=== PATIENT | male | born 1990 | race African-American/Black ===

== ENCOUNTER 2016-06-04 07:58 | Emergency (ER) | payer BC, OTHER ==
[2016-06-04 08:07] VITALS: BP 118/60; TEMP 97.6
[2016-06-04] MEDS ORDERED: IPRATROPIUM-ALBUTEROL 3 ML NEB INHALATION STA (08:19)
--- NOTE | 2016-06-04 08:26 | ED ---
General Adult HPI - General Chief complaint: Shortness of Breath Stated complaint: ASTHMA, ANI Time Seen by Provider: 06/04/16 08:10 Source: patient, RN notes reviewed Mode of arrival: ambulatory Limitations: no limitations - History of Present Illness Initial comments: Patient is a 26-year-old male with significant past mental history for asthma, who presents emergency room today with a chief complaint of asthma exacerbation. He does admit that he's had some mild cough last few days waking up this morning with increased shortness of breath. States feels similar to his asthma. Does admit that he used to do. She was at home but no longer has machine. He denies any other complaints or associated symptoms. Patient denies any recent fever, chills, shortness of breath, chest pain, back pain, abdominal pain, nausea or vomiting, numbness or tingling, dysuria or hematuria, constipation or diarrhea, headaches or visual changes, or any other complaints. - Related Data Home Medications Medication Instructions Recorded Confirmed Albuterol Inhaler [Ventolin 2 puff INHALATION RT-Q4H PRN 02/03/14 06/04/16 Inhaler] Previous Rx's Medication Instructions Recorded Albuterol Inhaler [Ventolin Hfa 1 - 2 puff INHALATION Q4-6H PRN #1 06/04/16 Inhaler] inhaler Albuterol Nebulized [Ventolin 2.5 mg INHALATION Q4H PRN 10 Days 06/04/16 Nebulized] methylPREDNISolone Dose Pack 4 mg PO DIRECTED #21 package 06/04/16 [Medrol Dose Pack] Allergies Allergy/AdvReac Type Severity Reaction Status Date / Time shellfish derived Allergy Itching Verified 06/04/16 08:22 Review of Systems ROS Statement: Those systems with pertinent positive or pertinent negative responses have been documented in the HPI. ROS Other: All systems not noted in ROS Statement are negative. Past Medical History Past Medical History: Asthma History of Any Multi-Drug Resistant Organisms: None Reported Past Surgical History: No Surgical Hx Reported Past Psychological History: No Psychological Hx Reported Smoking Status: Never smoker Past Alcohol Use History: None Reported Past Drug Use History: None Reported General Exam - General Exam Comments Initial Comments: General: The patient is awake and alert, in no distress, and does not appear acutely ill. Eye: Pupils are equal, round and reactive to light, extra-ocular movements are intact. No nystagmus. There is normal conjunctiva bilaterally. No signs of icterus. Ears, nose, mouth and throat: There are moist mucous membranes and no oral lesions. Neck: The neck is supple, there is no tenderness or JVD. Cardiovascular: There is a regular rate and rhythm. No murmur, rub or gallop is appreciated. Respiratory: Lungs sounds diminished bilaterally. Mild wheezing on forced expiration. respirations are non-labored, breath sounds are equal. No stridor , rales, or rhonchi. Musculoskeletal: Normal ROM, no tenderness. Strength 5/5. Sensation intact. Pulses equal bilaterally 2+. Neurological: A&O x 3. CN II-XII intact, There are no obvious motor or sensory deficits. Coordination appears grossly intact. Speech is normal. Skin: Skin is warm and dry and no rashes or lesions are noted. Psychiatric: Cooperative, appropriate mood & affect, normal judgment. Limitations: no limitations Course Vital Signs 06/04/16 06/04/16 06/04/16 08:04 08:41 08:50 Temperature 97.6 F Pulse Rate 82 78 80 Respiratory 18 Rate Blood Pressure 118/60 O2 Sat by Pulse 98 Oximetry Medical Decision Making - Medical Decision Making Patient reexamined at this time shows no signs of distress. He does admit that he is feeling much better. Patient given breathing treatment here. Patient admits that symptoms are consistent with his asthma but states he does not have his medications and just ran out of his inhaler. Patient will be placed on a steroid Dosepak. Will be given a prescription for nebulizer with breathing treatments along with albuterol inhaler. He is advised to follow-up in return here to the emergency room symptoms increase or worsen or for any other concerns. Disposition Clinical Impression: Asthma exacerbation Disposition: HOME SELF-CARE Condition: Good Instructions: Bronchospasm (ED) Additional Instructions: Please use medication as discussed. Please follow-up with family doctor in the next 2 days of symptoms have not improved. Please return to emergency room if the symptoms increase or worsen or for any other concerns. Prescriptions: Albuterol Inhaler [Ventolin Hfa Inhaler] 1 - 2 puff INHALATION Q4-6H PRN #1 inhaler PRN Reason: Cough Albuterol Nebulized [Ventolin Nebulized] 2.5 mg INHALATION Q4H PRN 10 Days PRN Reason: Cough methylPREDNISolone Dose Pack [Medrol Dose Pack] 4 mg PO DIRECTED #21 package Referrals: None,Stated [Primary Care Provider] - 1-2 days Jamal Humphrey MD [STAFF PHYSICIAN] - 1-2 days Time of Disposition: 09:02
[2016-06-04 09:10] VITALS: PULSE 73; RESP 16
== END 2016-06-04 09:09 | disposition home or self-care (01) ==
LOC: EC 07:58
DX: J45.901 Unspecified asthma with (acute) exacerbation (principal); Z79.899 Other long term (current) drug therapy; Z91.013 Allergy to seafood
CPT/HCPCS: 94640; 99284

== ENCOUNTER 2016-09-30 02:41 | Emergency (ER) | payer OTHER ==
[2016-09-30 02:46] VITALS: BP 126/68; RESP 22; TEMP 97.8
[2016-09-30] MEDS ORDERED: IPRATROPIUM-ALBUTEROL 3 ML NEB INHALATION STA (03:01)
--- NOTE | 2016-09-30 03:03 | ED ---
General Adult HPI - General Chief complaint: Shortness of Breath Stated complaint: SOB Time Seen by Provider: 09/30/16 02:51 Source: patient, RN notes reviewed Mode of arrival: ambulatory Limitations: no limitations - History of Present Illness Initial comments: Patient is a 26-year-old male presents emergency room for evaluation shortness of breath. Patient states he has a history of asthma. Patient states he feels like he is having an asthma exacerbation. Patient states on having increasing shortness of breath over the past 2 weeks. Patient states he's been having a productive cough. Patient states he ran out of puffs on his albuterol inhaler at home. Patient denies smoking. Patient states been having on and off fevers and chills. Patient denies chest pain. Patient denies headache or dizziness. Patient denies nausea or vomiting. - Related Data Home Medications Medication Instructions Recorded Confirmed Albuterol Inhaler [Ventolin 2 puff INHALATION RT-Q4H PRN 02/03/06/04/16 Inhaler] Previous Rx's Medication Instructions Recorded Albuterol Inhaler [Ventolin Hfa 1 - 2 puff INHALATION Q4-6H PRN #1 06/04/16 Inhaler] inhaler Albuterol Nebulized [Ventolin 2.5 mg INHALATION Q4H PRN 10 Days 06/04/16 Nebulized] methylPREDNISolone Dose Pack 4 mg PO DIRECTED #21 package 06/04/16 [Medrol Dose Pack] Albuterol Inhaler [Ventolin Hfa 1 - 2 puff INHALATION Q6HR PRN #1 09/30/16 Inhaler] inhaler predniSONE 40 mg PO DAILY 4 Days 09/30/16 Allergies Allergy/AdvReac Type Severity Reaction Status Date / Time shellfish derived Allergy Itching Verified 09/30/16 02:46 Review of Systems ROS Statement: Those systems with pertinent positive or pertinent negative responses have been documented in the HPI. ROS Other: All systems not noted in ROS Statement are negative. Past Medical History Past Medical History: Asthma History of Any Multi-Drug Resistant Organisms: None Reported Past Surgical History: No Surgical Hx Reported Past Psychological History: No Psychological Hx Reported Smoking Status: Never smoker Past Alcohol Use History: None Reported Past Drug Use History: None Reported General Exam - General Exam Comments Initial Comments: Sitting in exam room, no acute distress. Limitations: no limitations General appearance: alert, in no apparent distress Head exam: Present: atraumatic, normocephalic, normal inspection Eye exam: Present: normal appearance ENT exam: Present: normal exam, normal oropharynx, mucous membranes moist, TM's normal bilaterally, normal external ear exam Neck exam: Present: normal inspection Respiratory exam: Present: wheezes. Absent: respiratory distress Cardiovascular Exam: Present: regular rate, normal rhythm, normal heart sounds Extremities exam: Present: normal inspection Back exam: Present: normal inspection Neurological exam: Present: alert, oriented X3, CN II-XII intact, normal gait Psychiatric exam: Present: normal affect, normal mood Skin exam: Present: warm, dry, intact, normal color. Absent: rash Course Vital Signs 09/30/16 09/30/16 09/30/16 02:44 03:18 03:28 Temperature 97.8 F Pulse Rate 72 84 80 Respiratory 22 Rate Blood Pressure 126/68 O2 Sat by Pulse 98 Oximetry Medical Decision Making - Medical Decision Making Patient is a 26-year-old male presents to emergency in for evaluation of asthma exacerbation. Chest x-ray shows no signs of pneumonia, pleural effusions or pneumothorax. Patient states he is feeling a lot better after nebulizer treatment. We will send patient home with prednisone and an inhaler as needed. Advised patient to follow-up with his primary care provider for reevaluation. Vitals are stable. Patient can be discharged. Patient states he understands everything that was discussed with him. Return parameters discussed. Case discussed with Dr. Castle. - Radiology Data Radiology results: report reviewed, image reviewed Disposition Clinical Impression: Asthma exacerbation Disposition: HOME SELF-CARE Condition: Good Instructions: Asthma (ED) Additional Instructions: Take prednisone as directed. Use inhaler as needed. Please follow up with primary care provider in 1-2 days for reevaluation. If any new symptom arises or symptoms worsen, return to ER as soon as possible. Prescriptions: Albuterol Inhaler [Ventolin Hfa Inhaler] 1 - 2 puff INHALATION Q6HR PRN #1 inhaler PRN Reason: Shortness Of Breath predniSONE 40 mg PO DAILY 4 Days Referrals: Jamal Humphrey MD [Primary Care Provider] - 1-2 days Time of Disposition: 03:37
[2016-09-30 03:28] VITALS: PULSE 80
--- NOTE | 2016-09-30 03:36 | XR ---
Chest PA and lateral views INDICATION: Chest pain COMPARISON: CXR 02/08/14 FINDINGS: PA and lateral views of the chest are obtained. The cardiomediastinal silhouette is within normal limits. Lungs are hyperexpanded and clear. No pleural effusion or pneumothorax. Bony elements are within normal limits. IMPRESSION: 1. Hyperexpanded lungs. 2. No radiographic evidence of acute cardiopulmonary disease.
[2016-09-30] MEDS ORDERED: predniSONE 20 MG TAB PO STA (03:40)
== END 2016-09-30 03:49 | disposition home or self-care (01) ==
LOC: EC 02:41
DX: J45.901 Unspecified asthma with (acute) exacerbation (principal); Z91.013 Allergy to seafood
CPT/HCPCS: 94640; 71020; 99285; J7512

== ENCOUNTER 2017-01-20 15:27 | Emergency (ER) | payer OTHER ==
[2017-01-20] MEDS ORDERED: IPRATROPIUM-ALBUTEROL 3 ML NEB INHALATION STA (15:36)
[2017-01-20] MEDS ORDERED: methylPREDNISolone SOD SUCCI 125 MG/2 ML VIAL IM STA (15:36)
--- NOTE | 2017-01-20 15:38 | ED ---
SOB HPI - General Chief Complaint: Shortness of Breath Stated Complaint: Shortness of breath Time Seen by Provider: 01/20/17 15:33 Source: patient, RN notes reviewed, old records reviewed Mode of arrival: ambulatory Limitations: no limitations - History of Present Illness Initial Comments: This is a 26-year-old male history of asthma presenting to emergency department with increased shortness of breath over the past 2 days. Patient reports he occasionally has to use an albuterol inhaler last use was last week. Patient reports the pills very tight chest and cannot fully take a deep breath. Patient reports increased nonproductive cough. Patient has had no recent fever or chills, sore throat or any other upper respiratory symptoms. - Related Data Home Medications Medication Instructions Recorded Confirmed Albuterol Inhaler [Ventolin Hfa 1 - 2 puff INHALATION RT-Q6H PRN 01/22/17 Inhaler] Previous Rx's Medication Instructions Recorded Beclomethasone Dip 80 Mcg/Puff 1 puff INHALATION BID #1 each 01/22/17 [Qvar 80 mcg] predniSONE 60 mg PO DAILY #30 tab 01/22/17 Allergies Allergy/AdvReac Type Severity Reaction Status Date / Time shellfish derived Allergy Itching Verified 01/22/17 22:22 Review of Systems ROS Statement: Those systems with pertinent positive or pertinent negative responses have been documented in the HPI. ROS Other: All systems not noted in ROS Statement are negative. Past Medical History Past Medical History: Asthma History of Any Multi-Drug Resistant Organisms: None Reported Past Surgical History: No Surgical Hx Reported Past Psychological History: No Psychological Hx Reported Smoking Status: Never smoker Past Alcohol Use History: None Reported Past Drug Use History: None Reported General Exam - General Exam Comments Initial Comments: Is a 26-year-old male. No acute distress. Limitations: no limitations General appearance: alert, in no apparent distress Head exam: Present: atraumatic, normocephalic, normal inspection Eye exam: Present: normal appearance, PERRL, EOMI. Absent: scleral icterus, conjunctival injection, periorbital swelling ENT exam: Present: normal exam, mucous membranes moist Neck exam: Present: normal inspection. Absent: tenderness, meningismus, lymphadenopathy Respiratory exam: Present: normal lung sounds bilaterally, wheezes (bilateral wheezing.). Absent: respiratory distress, rales, rhonchi, stridor Cardiovascular Exam: Present: regular rate, normal rhythm, normal heart sounds. Absent: systolic murmur, diastolic murmur, rubs, gallop, clicks GI/Abdominal exam: Present: soft, normal bowel sounds. Absent: distended, tenderness, guarding, rebound, rigid Extremities exam: Present: normal inspection, full ROM, normal capillary refill. Absent: tenderness, pedal edema, joint swelling, calf tenderness Back exam: Present: normal inspection Neurological exam: Present: alert, oriented X3, CN II-XII intact Psychiatric exam: Present: normal affect, normal mood Skin exam: Present: warm, dry, intact, normal color. Absent: rash Course Vital Signs 01/20/17 01/20/17 01/20/17 15:29 15:42 15:51 Temperature 98.0 F Pulse Rate 79 79 66 Respiratory 22 Rate Blood Pressure 107/62 O2 Sat by Pulse 99 Oximetry 01/20/17 01/20/17 15:59 16:34 Temperature 97.6 F Pulse Rate 63 Respiratory 20 18 Rate Blood Pressure 142/81 O2 Sat by Pulse 100 Oximetry Medical Decision Making - Medical Decision Making 26-year-old male presents emergency department with chief complaint of acute asthma exacerbation past 2 days. Reports that it seemed to be worse at work. Patient given a breathing treatment 9 slight nodule. He reports he is feeling better. Patient discharged with albuterol inhaler and Medrol Dosepak. Discussed close follow-up with primary care provider. Return parameters were discussed. - Radiology Data Radiology results: report reviewed Disposition Clinical Impression: Asthma exacerbation Disposition: HOME SELF-CARE Condition: Good Instructions: Asthma (ED) Additional Instructions: Patient advised to use the steroid Dosepak as directed. Also used her albuterol inhaler as needed for shortness of breath. Return to emergency department if any alarming signs or symptoms occur. Referrals: Jamal Humphrey MD [Primary Care Provider] - 1-2 days Time of Disposition: 16:26
--- NOTE | 2017-01-20 16:09 | XR ---
EXAMINATION TYPE: XR chest 2V DATE OF EXAM: 01/20/2017 COMPARISON: 09/30/2016 HISTORY: Shortness of breath TECHNIQUE: Frontal and lateral views of the chest are obtained. FINDINGS: There is no focal air space opacity, pleural effusion, or pneumothorax seen. The cardiac silhouette size is within normal limits. The osseous structures are intact. IMPRESSION: No acute cardiopulmonary process.
[2017-01-20 16:35] VITALS: BP 142/81; PULSE 63; RESP 18; TEMP 97.6
== END 2017-01-20 16:37 | disposition home or self-care (01) ==
LOC: EC 15:27
DX: J45.901 Unspecified asthma with (acute) exacerbation (principal); Z91.013 Allergy to seafood
CPT/HCPCS: 99285; 96372; 94640; 71020; J2930

== ENCOUNTER 2017-01-22 22:01 | Emergency (ER) | payer OTHER ==
[2017-01-22 22:05] VITALS: BP 126/64; RESP 18; TEMP 98.5
[2017-01-22] MEDS ORDERED: IPRATROPIUM-ALBUTEROL 3 ML NEB INHALATION STA (22:18)
[2017-01-22] MEDS ORDERED: predniSONE 20 MG TAB PO STA ×2 (22:19→22:47)
[2017-01-22 22:35] VITALS: PULSE 80
--- NOTE | 2017-01-22 22:39 | ED ---
SOB HPI - General Chief Complaint: Shortness of Breath Stated Complaint: Asthma/SOB Time Seen by Provider: 01/22/17 22:06 Source: patient Mode of arrival: ambulatory Limitations: no limitations - History of Present Illness Initial Comments: This patient is a 26-year-old man presenting with the complaint that his asthma is flaring up. He states this been going on for about 3 days now. He states that he always seems to get an asthma flare around the change of season. He is complaining of a nonproductive cough, wheezing, and that tight feeling across his chest. He states that he was seen here yesterday and did have a little bit of improvement with the albuterol. He states that he couldn't get the Medrol Dosepak filled because it was expensive and he does not have insurance. The patient states that the symptoms have recurred. No fever or chills. No purulent sputum. MD Complaint: shortness of breath, cough, "asthma attack" Onset/Timin -: days(s) Consistency: constant Improves With: nothing Worsens With: nothing Known History Of: asthma Associated Symptoms: denies other symptoms - Related Data Home Medications Medication Instructions Recorded Confirmed Albuterol Inhaler [Ventolin Hfa 1 - 2 puff INHALATION RT-Q6H PRN 01/22/17 Inhaler] Previous Rx's Medication Instructions Recorded Beclomethasone Dip 80 Mcg/Puff 1 puff INHALATION BID #1 each 01/22/17 [Qvar 80 mcg] predniSONE 60 mg PO DAILY #30 tab 01/22/17 Allergies Allergy/AdvReac Type Severity Reaction Status Date / Time shellfish derived Allergy Itching Verified 01/22/17 22:22 Review of Systems ROS Statement: Those systems with pertinent positive or pertinent negative responses have been documented in the HPI. ROS Other: All systems not noted in ROS Statement are negative. Constitutional: Denies: fever, chills, weakness Respiratory: Reports: cough, dyspnea, wheezes. Denies: hemoptysis, stridor Cardiovascular: Denies: palpitations, dyspnea on exertion, orthopnea, edema, syncope Musculoskeletal: Denies: back pain Skin: Denies: rash Past Medical History Past Medical History: Asthma History of Any Multi-Drug Resistant Organisms: None Reported Past Surgical History: No Surgical Hx Reported Past Psychological History: No Psychological Hx Reported Smoking Status: Never smoker Past Alcohol Use History: None Reported Past Drug Use History: None Reported General Exam Limitations: no limitations General appearance: alert, in no apparent distress ENT exam: Present: normal oropharynx, mucous membranes moist Respiratory exam: Present: wheezes. Absent: respiratory distress, rales, rhonchi, chest wall tenderness, accessory muscle use, decreased breath sounds, prolonged expiratory Cardiovascular Exam: Present: regular rate, normal rhythm, normal heart sounds. Absent: systolic murmur, diastolic murmur, rubs, gallop Extremities exam: Present: normal inspection, normal capillary refill. Absent: pedal edema, calf tenderness Skin exam: Present: warm, dry, intact, normal color. Absent: rash Course Vital Signs 01/22/17 01/22/17 01/22/17 22:02 22:21 22:35 Temperature 98.5 F Pulse Rate 76 77 80 Respiratory 18 Rate Blood Pressure 126/64 O2 Sat by Pulse 98 Oximetry Medical Decision Making - Medical Decision Making Patient is 26-year-old man with uncomplicated exacerbation of asthma. He was not able to have the steroids filled yesterday. He is given nebulized treatment and has had improvement. Auscultation reveals that the wheezing has nearly entirely resolved. His chest symptoms have resolved. He is given dose steroids here. Patient is also prescribed course of steroid as generic. Return parameters discussed. Disposition Clinical Impression: Asthma exacerbation Disposition: HOME SELF-CARE Condition: Good Instructions: Asthma (ED) Prescriptions: Beclomethasone Dip 80 Mcg/Puff [Qvar 80 mcg] 1 puff INHALATION BID #1 each predniSONE 60 mg PO DAILY #30 tab Referrals: Jamal Humphrey MD [Primary Care Provider] - 1-2 days
== END 2017-01-22 22:57 | disposition home or self-care (01) ==
LOC: EC 22:01
DX: J45.901 Unspecified asthma with (acute) exacerbation (principal); Z91.013 Allergy to seafood
CPT/HCPCS: 94640; 99284; J7512

== ENCOUNTER 2017-01-26 10:42 | Emergency (ER) | payer OTHER ==
[2017-01-26] MEDS ORDERED: predniSONE 20 MG TAB PO STA (11:20)
[2017-01-26] MEDS ORDERED: IPRATROPIUM-ALBUTEROL 3 ML NEB INHALATION STA (11:20)
--- NOTE | 2017-01-26 11:23 | ED ---
SOB HPI - General Chief Complaint: Shortness of Breath Stated Complaint: asthma Time Seen by Provider: 01/26/17 11:16 Source: patient, RN notes reviewed Mode of arrival: ambulatory Limitations: no limitations - History of Present Illness Initial Comments: 26-year-old male presents emergency Department chief complaint asthma exacerbation. Patient states that he has had a few recent hospital visits because of his asthma. Patient states that he does not fill his prescription for steroids because it cost him money. Patient states that he has been trying his inhaler and gets some relief of his shortness of breath. Patient denies any fever or chills. Denies any chest pain no pleuritic chest pain. Denies any nausea vomiting diarrhea constipation. - Related Data Home Medications Medication Instructions Recorded Confirmed Albuterol Inhaler [Ventolin Hfa 1 - 2 puff INHALATION RT-Q6H PRN 01/22/17 Inhaler] Previous Rx's Medication Instructions Recorded Beclomethasone Dip 80 Mcg/Puff 1 puff INHALATION BID #1 each 01/22/17 [Qvar 80 mcg] predniSONE 60 mg PO DAILY #30 tab 01/22/17 Allergies Allergy/AdvReac Type Severity Reaction Status Date / Time shellfish derived Allergy Itching Verified 01/26/17 11:01 Review of Systems ROS Statement: Those systems with pertinent positive or pertinent negative responses have been documented in the HPI. ROS Other: All systems not noted in ROS Statement are negative. Past Medical History Past Medical History: Asthma History of Any Multi-Drug Resistant Organisms: None Reported Past Surgical History: No Surgical Hx Reported Past Psychological History: No Psychological Hx Reported Smoking Status: Never smoker Past Alcohol Use History: None Reported Past Drug Use History: None Reported General Exam Limitations: no limitations General appearance: alert, in no apparent distress Head exam: Present: atraumatic, normocephalic, normal inspection Eye exam: Present: normal appearance, PERRL, EOMI. Absent: scleral icterus, conjunctival injection, periorbital swelling ENT exam: Present: normal exam, normal oropharynx, mucous membranes moist, TM's normal bilaterally, normal external ear exam Neck exam: Present: normal inspection. Absent: tenderness, meningismus, lymphadenopathy Respiratory exam: Present: wheezes (Bilateral throughout). Absent: normal lung sounds bilaterally, respiratory distress, rales, rhonchi, stridor Cardiovascular Exam: Present: regular rate, normal rhythm, normal heart sounds. Absent: systolic murmur, diastolic murmur, rubs, gallop, clicks Course Vital Signs 01/26/17 01/26/17 01/26/17 10:59 11:36 11:50 Temperature 97.5 F L Pulse Rate 101 H 92 108 H Respiratory 20 Rate Blood Pressure 128/77 O2 Sat by Pulse 97 Oximetry Medical Decision Making - Medical Decision Making 26-year-old male present emergency department for asthma exacerbation. Patient is improved after DuoNeb treatment. Patient's chest x-ray shows changes consistent with reactive airway disease. Patient does have 2 prescriptions for steroids and he is advised that he needs to fill his prescriptions. He states he will do that. Patient will follow with his PCP return parameters discussed. Disposition Clinical Impression: Asthma exacerbation Disposition: HOME SELF-CARE Condition: Stable Instructions: Asthma (ED) Additional Instructions: Fill your prescription for the prednisone and take as directed.Please return to the Emergency Department if symptoms worsen or any other concerns. Referrals: Jamal Humphrey MD [Primary Care Provider] - 1-2 days Time of Disposition: 11:57
--- NOTE | 2017-01-26 11:54 | XR ---
EXAMINATION TYPE: XR chest 2V DATE OF EXAM: 01/26/2017 COMPARISON: Prior chest x-ray 01/20/2017 HISTORY: Chest pain, shortness of breath and cough TECHNIQUE: Frontal and lateral views of the chest are obtained. FINDINGS: Lung volumes are prominent suggesting underlying COPD. Heart is small. Pulmonary vasculari ty and komal are stable. No evident airspace disease, pneumothorax, or pleural effusion. Bronchial wal l thickening suspected. IMPRESSION: No acute cardiopulmonary process. Stable exam. There is bronchial wall thickening, corre late for reactive airways disease, bronchitis.
[2017-01-26 12:11] VITALS: BP 135/87; PULSE 74; RESP 17; TEMP 97.7
== END 2017-01-26 12:10 | disposition home or self-care (01) ==
LOC: EC 10:42
DX: J45.901 Unspecified asthma with (acute) exacerbation (principal); Z91.013 Allergy to seafood
CPT/HCPCS: 94640; 71020; 99285; J7512

== ENCOUNTER 2017-02-19 20:12 | Emergency (ER) | payer OTHER ==
[2017-02-19 20:19] VITALS: RESP 20
--- NOTE | 2017-02-19 20:40 | ED ---
SOB HPI - General Chief Complaint: Shortness of Breath Stated Complaint: SOB Hx Asthma Time Seen by Provider: 02/19/17 20:18 Source: patient Mode of arrival: EMS Limitations: no limitations - History of Present Illness Initial Comments: 27 year-old male patient presents for evaluation via EMS for shortness of breath which he believes is related to his asthma. Patient states that he started having trouble yesterday. He states he often gets these symptoms when the weather changes. His last episode was 2 weeks ago. He states that he has been wheezy. He denies any nasal congestion, nasal drainage, cough, sputum production, or sore throat. Patient denies any recent rash, fever, chills, chest pain, abdominal pain, nausea, vomiting, diarrhea, constipation, back pain , numbness, tingling, dizziness, weakness, hematuria, dysuria, urinary urgency, urinary frequency, headache, visual changes, or any other complaints. He reports that he used to have inhalers at home, but does not currently have insurance and he ran out of the medication. He did receive a duoneb and 125mg Solu-Medrol in EMS and states he is feeling much better. - Related Data Home Medications Medication Instructions Recorded Confirmed Albuterol Inhaler [Ventolin Hfa 1 - 2 puff INHALATION RT-Q6H PRN 01/22/17 Inhaler] Previous Rx's Medication Instructions Recorded Albuterol Inhaler [Ventolin Hfa 1 - 2 puff INHALATION Q6HR PRN #1 02/19/17 Inhaler] inhaler predniSONE 50 mg PO DAILY #5 tab 02/19/17 Allergies Allergy/AdvReac Type Severity Reaction Status Date / Time shellfish derived Allergy Itching Verified 02/19/17 20:34 Review of Systems ROS Statement: Those systems with pertinent positive or pertinent negative responses have been documented in the HPI. ROS Other: All systems not noted in ROS Statement are negative. Past Medical History Past Medical History: Asthma History of Any Multi-Drug Resistant Organisms: None Reported Past Surgical History: No Surgical Hx Reported Past Psychological History: No Psychological Hx Reported Smoking Status: Never smoker Past Alcohol Use History: None Reported Past Drug Use History: None Reported General Exam Limitations: no limitations General appearance: alert, in no apparent distress, other (This is a well- developed, well-nourished adult male patient no acute distress. Respirations are even and unlabored. Patient is able to speak full sentences without difficulty. Temperature 98.4F, pulse 64, respirations 20, blood pressure 140/ 76, pulse ox 99% on room air.) Eye exam: Present: normal appearance, PERRL, EOMI. Absent: scleral icterus, conjunctival injection, periorbital swelling ENT exam: Present: normal exam, normal oropharynx, mucous membranes moist, TM's normal bilaterally Neck exam: Present: normal inspection. Absent: tenderness, meningismus, lymphadenopathy Respiratory exam: Present: normal lung sounds bilaterally. Absent: respiratory distress, wheezes, rales, rhonchi, stridor Cardiovascular Exam: Present: regular rate, normal rhythm, normal heart sounds. Absent: systolic murmur, diastolic murmur, rubs, gallop, clicks GI/Abdominal exam: Present: soft, normal bowel sounds. Absent: distended, tenderness, guarding, rebound, rigid Neurological exam: Present: alert, oriented X3, CN II-XII intact Psychiatric exam: Present: normal affect, normal mood Skin exam: Present: warm, dry, intact, normal color. Absent: rash Course Vital Signs 02/19/17 02/19/17 20:14 20:19 Temperature 98.4 F Pulse Rate 64 Respiratory 20 20 Rate Blood Pressure 140/76 O2 Sat by Pulse 99 Oximetry Medical Decision Making - Medical Decision Making 27 year-old male patient presented via EMS for evaluation of asthma exacerbation. Chest x-ray was negative. Patient did receive DuoNeb updraft treatment and 125 mg of Solu-Medrol IV push in EMS. Upon arrival patient states he was feeling much better. Physical examination was unremarkable, I did not appreciate any wheezing. EMS staff did report that patient did have wheezing when they picked him up. Patient will be discharged home with a prescription for steroids. He is instructed to take an [id number]-[id number] antihistamine for ALLERGY control. Patient is also given a prescription for an albuterol inhaler. Patient does report that he has albuterol solution just not a mouthpiece for his nebulizer machine. He'll be given a mouth piece here and instructed to use this every 4 hours as needed. He is instructed to follow-up with his primary care physician for recheck in 1-2 days. He is instructed to return here immediately for any new, worsening, or concerning symptoms. Patient verbalizes understanding and agrees this plan. - Radiology Data Radiology results: report reviewed, image reviewed Two-view x-ray of the chest shows a hard mediastinum are normal. Lungs are clear. Diaphragm is normal. Bony thorax is intact. Impression by Dr. Arredondo shows normal chest with no change. Disposition Clinical Impression: Asthma Disposition: HOME SELF-CARE Condition: Good Instructions: Asthma (ED) Additional Instructions: Take medications as directed. Consider taking [id number] ALLERGY medication once daily examples are Claritin (loratadine), Zyrtec (cetirizine), or Sofía (Fexofenadine). Follow-up with her primary care physician for recheck in 1-2 days. Return here immediately for any new, worsening, or concerning symptoms. Prescriptions: Albuterol Inhaler [Ventolin Hfa Inhaler] 1 - 2 puff INHALATION Q6HR PRN #1 inhaler PRN Reason: Shortness of Breath/Wheezing predniSONE 50 mg PO DAILY #5 tab Referrals: Jamal Humphrey MD [Primary Care Provider] - 1-2 days Time of Disposition: 21:38
--- NOTE | 2017-02-19 20:49 | XR ---
EXAMINATION TYPE: XR chest 2V DATE OF EXAM: 02/19/2017 COMPARISON: 01/26/2017 HISTORY: Short of breath TECHNIQUE: Frontal and lateral views of the chest are obtained. FINDINGS: Heart and mediastinum are normal. Lungs are clear. Diaphragm is normal. Bony thorax is int act. IMPRESSION: Normal chest. No change.
[2017-02-19 22:00] VITALS: BP 142/82; PULSE 60; TEMP 98.1
== END 2017-02-19 22:00 | disposition home or self-care (01) ==
LOC: EC 20:12
DX: J45.909 Unspecified asthma, uncomplicated (principal); Z91.030 Bee allergy status
CPT/HCPCS: 71020; 99285

== ENCOUNTER 2021-12-14 18:20 | Emergency (ER) | payer OTHER ==
--- NOTE | 2021-12-14 18:30 | ED ---
General Adult HPI - General Chief complaint: Shortness of Breath Stated complaint: ANI Time Seen by Provider: 12/14/21 18:27 Source: patient Mode of arrival: EMS Limitations: no limitations - History of Present Illness Initial comments: Patient presents to the ED by ambulance for evaluation. Patient states that he has had an asthma exacerbation and dyspnea for the past 2 days. Patient states that his asthma is normally exacerbated by weather changes, and he states that it is been hot and muggy recently, which he believes has exacerbated his asthma. Patient admits to having some nasal congestion and a cough as well. Patient denies Covid vaccination. Patient was given a nebulizer treatment by EMS, and he reports that his dyspnea has improved with the nebulizer treatment. Patient denies having any pain, fever or chills, headache, focal neuro deficit, sore throat, chest pain, hemoptysis, palpitations, dizziness, abdominal pain, nausea/vomiting/diarrhea, dysuria or urinary symptoms, leg or calf swelling or pain, or any other symptoms or complaints. - Related Data Home Medications Medication Instructions Recorded Confirmed Albuterol Inhaler [Ventolin Hfa 1 - 2 puff INHALATION RT-Q6H PRN 01/22/17 02/19/17 Inhaler] Previous Rx's Medication Instructions Recorded Albuterol Inhaler [Ventolin Hfa 1 - 2 puff INHALATION Q6HR PRN #1 02/19/17 Inhaler] inhaler predniSONE 50 mg PO DAILY #5 tab 02/19/17 Albuterol Nebulized [Ventolin 2.5 mg INHALATION QID PRN #30 ml 12/14/21 Nebulized] predniSONE [Deltasone] 20 mg PO BID #10 tab 12/14/21 Allergies Allergy/AdvReac Type Severity Reaction Status Date / Time shellfish derived Allergy Itching Verified 12/14/21 18:25 Review of Systems ROS Statement: Those systems with pertinent positive or pertinent negative responses have been documented in the HPI. ROS Other: All systems not noted in ROS Statement are negative. Past Medical History Past Medical History: Asthma History of Any Multi-Drug Resistant Organisms: None Reported Past Surgical History: No Surgical Hx Reported Past Psychological History: No Psychological Hx Reported Past Alcohol Use History: None Reported Past Drug Use History: None Reported General Exam Limitations: no limitations General appearance: alert, in no apparent distress Head exam: Present: atraumatic, normocephalic Eye exam: Present: normal appearance, EOMI ENT exam: Present: normal oropharynx, mucous membranes moist Neck exam: Present: other (Trachea is in midline) Respiratory exam: Present: other (Bilateral expiratory wheezes). Absent: respiratory distress, rales, rhonchi, stridor Cardiovascular Exam: Present: regular rate, normal rhythm, normal heart sounds, other (Normal radial pulses bilaterally) GI/Abdominal exam: Present: soft. Absent: distended, tenderness, guarding Extremities exam: Present: other (Negative Homans sign bilaterally). Absent: tenderness, pedal edema, calf tenderness Neurological exam: Present: alert, oriented X3. Absent: motor sensory deficit Psychiatric exam: Present: normal affect, normal mood Skin exam: Present: warm, dry, intact, normal color Course Vital Signs 12/14/21 12/14/21 12/14/21 18:23 18:35 19:10 Temperature 98.4 F Pulse Rate 76 70 Respiratory 20 18 Rate Blood Pressure 139/76 O2 Sat by Pulse 98 Oximetry 12/14/21 19:18 Temperature Pulse Rate 73 Respiratory 18 Rate Blood Pressure O2 Sat by Pulse Oximetry - Reevaluation(s) Reevaluation #1: 12/14/21 19:45 Patient states that his dyspnea has improved with the DuoNeb treatment that he was given in the ED. Patient's wheezing has now improved. Patient remains alert and breathing comfortably with a normal room air oxygen saturation. Patient is aware of his test results. Patient meets criteria for Covid monoclo nal antibody infusion therapy. I recommended it to him, but he declines. Patient was counseled about asthma exacerbations and Covid infection, and he feels comfortable being discharged home at this time. Patient was instructed to follow up closely with his primary care provider. Patient was also clearly explained return and follow-up instructions. Patient feels comfortable with this plan. Will discharge patient home with a prescription for a course of oral prednisone, as well as albuterol nebules per his request. Medical Decision Making - Lab Data Lab Results 12/14/21 Range/Units 18:49 Influenza Type A (PCR) Not Detected (Not Detectd) Influenza Type B (PCR) Not Detected (Not Detectd) RSV (PCR) Not Detected (Not Detectd) SARS-CoV-2 (PCR) Detected A (Not Detectd) - Radiology Data Chest x-ray: Rounded density overlies the left lung base. Etiologies include infectious/inflammatory process, nodule, atelectasis, or artifact. Consider further evaluation with CT chest. Bronchial wall thickening. Correlate for reactive airways disease/bronchitis. Disposition Clinical Impression: Asthma exacerbation, COVID-19 Disposition: HOME SELF-CARE Condition: Stable Instructions (If sedation given, give patient instructions): Asthma (ED), Coronavirus Disease 2019 (COVID-19) Additional Instructions: Return to the ER immediately should you develop increased shortness of breath, a fever, any significant pain/chest pain, feeling dizzy or faint, or new or worsening symptoms. Follow up closely with your primary care provider. Prescriptions: predniSONE [Deltasone] 20 mg PO BID #10 tab Albuterol Nebulized [Ventolin Nebulized] 2.5 mg INHALATION QID PRN #30 ml PRN Reason: Dyspnea Is patient prescribed a controlled substance at d/c from ED?: No Referrals: Jamal Humphrey MD [Primary Care Provider] - 1-2 days Time of Disposition: 19:52
[2021-12-14] MEDS ORDERED: IPRATROPIUM-ALBUTEROL 3 ML NEB INHALATION STA (18:35)
[2021-12-14] MEDS ORDERED: predniSONE 20 MG TAB PO STA (18:35)
[2021-12-14 18:55] VITALS: TEMP 98.4
--- NOTE | 2021-12-14 19:10 | XR ---
EXAMINATION TYPE: XR chest 2V DATE OF EXAM: 12/14/2021 6:55 PM COMPARISON: Chest radiographs from 02/19/2017. TECHNIQUE: XR chest 2V Frontal and lateral views of the chest. CLINICAL INDICATION:Male, 31 years old with history of difficulty breathing; FINDINGS: Lungs/Pleura: There is no evidence of pleural effusion or pneumothorax. 2.3 cm round density overlies the left lung base on the frontal view and not definitively visualized on the lateral view. Bronchia l wall thickening. Heart/mediastinum: Cardiomediastinal silhouette is unremarkable. Musculoskeletal: No acute osseous pathology. IMPRESSION: * Rounded density overlies the left lung base. Etiologies include infectious/inflammatory process, n odule, atelectasis, or artifact. Consider further evaluation with CT chest. * Bronchial wall thickening. Correlate for reactive airways disease/bronchitis.
[2021-12-14 20:43] VITALS: BP 138/85; PULSE 63; RESP 16
== END 2021-12-14 20:43 | disposition home or self-care (01) ==
LOC: EC 18:20
DX: U07.1 COVID-19 (principal); J45.901 Unspecified asthma with (acute) exacerbation; Z91.013 Allergy to seafood
CPT/HCPCS: 94640; 87636; 71046; 99285; J7512

== ENCOUNTER 2023-02-25 06:26 | Emergency (ER) | payer OTHER ==
[2023-02-25] MEDS ORDERED: methylPREDNISolone SOD SUCCI 125 MG/2 ML VIAL IM ONE (06:40)
[2023-02-25] MEDS ORDERED: IPRATROPIUM-ALBUTEROL 3 ML NEB INHALATION STA (06:40)
[2023-02-25 06:41] VITALS: TEMP 98.5
--- NOTE | 2023-02-25 06:55 | ED ---
General Adult HPI - General Chief complaint: Shortness of Breath Stated complaint: Difficulty Breathing, Cough Time Seen by Provider: 02/25/23 06:26 Source: patient, RN notes reviewed Mode of arrival: ambulatory Limitations: no limitations - History of Present Illness Initial comments: 33-year-old male presents emergency Department with chief complaint shortness of breath. Patient states she was sudden onset a few hours ago. Patient does admit that he has asthma. Patient states she was recently incarcerated and since his release he has been smoking heavily. Patient denies any significant cough or cold-like symptoms denies fevers or chills. Patient denies any chest pain denies any abdominal pain including nausea and diarrhea constipation or leg swelling. - Related Data Previous Rx's Medication Instructions Recorded Albuterol Inhaler [Ventolin Hfa 1 - 2 puff INHALATION Q6H PRN #1 02/25/23 Inhaler] each predniSONE 50 mg PO DAILY #5 tab 02/25/23 Allergies Allergy/AdvReac Type Severity Reaction Status Date / Time shellfish derived Allergy Itching Verified 02/25/23 08:31 Review of Systems ROS Statement: Those systems with pertinent positive or pertinent negative responses have been documented in the HPI. ROS Other: All systems not noted in ROS Statement are negative. Past Medical History Past Medical History: Asthma History of Any Multi-Drug Resistant Organisms: None Reported Past Surgical History: No Surgical Hx Reported Past Psychological History: No Psychological Hx Reported Smoking Status: Never smoker Past Alcohol Use History: None Reported Past Drug Use History: None Reported General Exam Limitations: no limitations General appearance: alert, in no apparent distress Head exam: Present: atraumatic, normocephalic, normal inspection Eye exam: Present: normal appearance, PERRL, EOMI. Absent: scleral icterus, conjunctival injection, periorbital swelling ENT exam: Present: normal exam, normal oropharynx, mucous membranes moist Neck exam: Present: normal inspection, full ROM. Absent: tenderness, meningismus, lymphadenopathy Respiratory exam: Present: wheezes, decreased breath sounds. Absent: normal lung sounds bilaterally, respiratory distress, rales, rhonchi, stridor Cardiovascular Exam: Present: normal rhythm, tachycardia, normal heart sounds. Absent: systolic murmur, diastolic murmur, rubs, gallop, clicks GI/Abdominal exam: Present: soft, normal bowel sounds. Absent: distended, tenderness, guarding, rebound, rigid Course Vital Signs 02/25/23 02/25/23 02/25/23 06:29 08:15 08:35 Temperature 98.5 F Pulse Rate 108 H 96 100 Respiratory 18 Rate Blood Pressure 126/66 O2 Sat by Pulse 96 Oximetry 02/25/23 08:54 Temperature Pulse Rate 89 Respiratory 20 Rate Blood Pressure 132/77 O2 Sat by Pulse 95 Oximetry Medical Decision Making - Medical Decision Making Was pt. sent in by a medical professional or institution (, VIRGILIO, [employer]CO MACHINE OPERATOR, urgent care, hospital, or fdc...) When possible be specific @ -No Did you speak to anyone other than the patient for history (EMS, parent, family, police, friend...)? What history was obtained from this source @ -No Did you review nursing and triage notes (agree or disagree)? Why? @ -I reviewed and agree with nursing and triage notes Were old charts reviewed (outside hosp., previous admission, EMS record, old EKG, old radiological studies, urgent care reports/EKG's, fdc records)? Report findings @ -No old charts were reviewed Differential Diagnosis (chest pain, altered mental status, abdominal pain women, abdominal pain men, vaginal bleeding, weakness, fever, dyspnea, syncope, headache, dizziness, GI bleed, back pain, seizure, CVA, palpatations, mental health, musculoskeletal)? @ -nDifferential Dyspnea: Coronary syndrome, arrhythmia, tamponade, asthma, COPD, pulmonary embolism, pneumonia, pneumothorax, pulmonary effusion, anaphylaxis, diabetic ketoacidosis, flailed chest, pulmonary contusion, diaphragmatic rupture, anemia, neuromuscular, this is not meant to be an all-inclusive list. ble EKG interpreted by me (3pts min.). @ -None X-rays interpreted by me (1pt min.). @ -Chest x-ray shows no acute process CT interpreted by me (1pt min.). @ -None done U/S interpreted by me (1pt. min.). @ -None done What testing was considered but not performed or refused? (CT, X-rays, U/S, labs)? Why? @ -None What meds were considered but not given or refused? Why? @ -None Did you discuss the management of the patient with other professionals (professionals i.e. , VIR[facility]ILIO, [employer] MACHINE OPERATOR, lab, RT, psych nurse, professor of social work, administrative assistant data entry, teacher, associate loan officer, wrapper caser)? Give summary @ -No Was smoking cessation discussed for >3mins.? @ -I discussed smoking cessation for greater than 3 minutes. The risk of smoking were discussed with the patient including but not limited to risks of cancer, stroke, coronary artery disease and COPD. Also discussed with patient were multiple methods of quitting smoking. Lastly we discussed the financial cost of smoking. Was critical care preformed (if so, how long)? @ -No Were there social determinants of health that impacted care today? How? (Homelessness, low income, unemployed, alcoholism, drug addiction, transportation, low edu. Level, literacy, decrease access to med. care, [facility], rehab)? @ -No Was there de-escalation of care discussed even if they declined (Discuss DNR or withdrawal of care, Hospice)? DNR status @ -No What co-morbidities impacted this encounter? (DM, HTN, Smoking, COPD, CAD, Cancer, CVA, ARF, Chemo, Hep., AIDS, mental health diagnosis, sleep apnea, morbid obesity)? @ -Asthma, smoking Was patient admitted / discharged? Hospital course, mention meds given and route, prescriptions, significant lab abnormalities, going to OR and other pertinent info. @ -Discharge patient prior Solu-Medrol, DuoNeb breathing treatment chest x-rays unremarkable patient feels improved discharged with prednisone, albuterol inhaler Undiagnosed new problem with uncertain prognosis? @ -No Drug Therapy requiring intensive monitoring for toxicity (Heparin, Nitro, Insulin, Cardizem)? @ -No Were any procedures done? @ -No Diagnosis/symptom? @ -Asthma exacerbation Acute, or Chronic, or Acute on Chronic? @ -Acute Uncomplicated (without systemic symptoms) or Complicated (systemic symptoms)? @ -Uncomplicated Side effects of treatment? @ -No Exacerbation, Progression, or Severe Exacerbation? @ -No Poses a threat to life or bodily function? How? (Chest pain, [place], NH, pneumonia, PE, COPD, DKA, ARF, appy, cholecystitis, CVA, Diverticulitis, Homicidal, Suicidal, threat to staff... and all critical care pts) @ -No Disposition Clinical Impression: Asthma exacerbation Disposition: HOME SELF-CARE Condition: Stable Instructions (If sedation given, give patient instructions): Asthma (ED) Additional Instructions: Please return to the Emergency Department if symptoms worsen or any other concerns. Prescriptions: predniSONE 50 mg PO DAILY #5 tab Albuterol Inhaler [Ventolin Hfa Inhaler] 1 - 2 puff INHALATION Q6H PRN #1 each PRN Reason: Shortness Of Breath Is patient prescribed a controlled substance at d/c from ED?: No Referrals: Jamal Humphrey MD [Primary Care Provider] - 1-2 days Time of Disposition: 08:32
--- NOTE | 2023-02-25 07:17 | XR ---
EXAMINATION TYPE: XR chest 2V DATE OF EXAM: 02/25/2023 COMPARISON: 12/14/2021 HISTORY: 33-year-old male shortness of breath TECHNIQUE: PA and lateral views FINDINGS: The cardiomediastinal silhouette, aorta, and pulmonary vasculature are within normal limits. Mild hyp erinflation. Lungs and pleural spaces are clear. IMPRESSION: Mild hyperinflation may relate to depth of inspiration or underlying emphysema. Clinically correlate. Otherwise, no acute cardiopulmonary process.
[2023-02-25 09:06] VITALS: BP 132/77; PULSE 89; RESP 20
== END 2023-02-25 08:55 | disposition home or self-care (01) ==
LOC: EC 06:26
DX: J45.901 Unspecified asthma with (acute) exacerbation (principal); Z91.013 Allergy to seafood
CPT/HCPCS: 94640; 71046; 99285; 96372; J2930

== ENCOUNTER 2023-04-09 23:00 | Emergency (ER) | payer OTHER ==
[2023-04-09 23:16] VITALS: RESP 18
[2023-04-09] MEDS ORDERED: ALBUTEROL NEBULIZED 2.5 MG/3 ML INHALATION STA (23:37)
--- NOTE | 2023-04-10 01:05 | ED ---
SOB HPI - General Chief Complaint: Shortness of Breath Stated Complaint: SOB Time Seen by Provider: 04/09/23 23:23 Source: EMS Mode of arrival: EMS - History of Present Illness Initial Comments: 33-year-old male with past medical history of asthma who presents to the emergency department reporting asthma exacerbation. States he was at home when he walked outside in the cold air hit him. He immediately had trouble breathing. EMS was called. They gave him a DuoNeb breathing treatment and 125 mg of Solu-Medrol. Patient reports feeling improved at this time. He denies any recent upper respiratory infections. No fevers, chills or cough. He denies any chest pain. No history of cardiac history. No other alleviating, precipitating or modifying factors - Related Data Previous Rx's Medication Instructions Recorded Albuterol Inhaler [Ventolin Hfa 1 - 2 puff INHALATION Q6H PRN #1 02/25/23 Inhaler] each predniSONE 50 mg PO DAILY #5 tab 02/25/23 Albuterol Inhaler [Ventolin Hfa 1 - 2 puff INHALATION Q4HR PRN #1 04/10/23 Inhaler] each predniSONE [Deltasone] 20 mg PO BID #10 tab 04/10/23 Allergies Allergy/AdvReac Type Severity Reaction Status Date / Time shellfish derived Allergy Itching Verified 04/09/23 23:04 Review of Systems ROS Statement: Those systems with pertinent positive or pertinent negative responses have been documented in the HPI. ROS Other: All systems not noted in ROS Statement are negative. Past Medical History Past Medical History: Asthma History of Any Multi-Drug Resistant Organisms: None Reported Past Surgical History: No Surgical Hx Reported Past Psychological History: No Psychological Hx Reported Smoking Status: Former smoker Past Alcohol Use History: None Reported Past Drug Use History: None Reported General Exam General appearance: alert, in no apparent distress Head exam: Present: atraumatic, normocephalic, normal inspection Eye exam: Present: normal appearance, PERRL, EOMI. Absent: scleral icterus, conjunctival injection, periorbital swelling ENT exam: Present: normal exam, mucous membranes moist Neck exam: Present: normal inspection. Absent: tenderness, meningismus, lymphadenopathy Respiratory exam: Present: wheezes. Absent: respiratory distress, rales, rhonchi, stridor Cardiovascular Exam: Present: regular rate, normal rhythm, normal heart sounds. Absent: systolic murmur, diastolic murmur, rubs, gallop, clicks GI/Abdominal exam: Present: soft, normal bowel sounds. Absent: distended, tenderness, guarding, rebound, rigid Extremities exam: Present: normal inspection, full ROM, normal capillary refill. Absent: tenderness, pedal edema, joint swelling, calf tenderness Back exam: Present: normal inspection Neurological exam: Present: alert, oriented X3, CN II-XII intact Psychiatric exam: Present: normal affect, normal mood Skin exam: Present: warm, dry, intact, normal color. Absent: rash Course Vital Signs 04/09/23 04/10/23 04/10/23 23:02 00:00 00:20 Pulse Rate 83 71 71 Respiratory 18 Rate Blood Pressure 129/89 O2 Sat by Pulse 98 Oximetry 04/10/23 01:19 Pulse Rate 64 Respiratory 18 Rate Blood Pressure 137/85 O2 Sat by Pulse 98 Oximetry Medical Decision Making - Medical Decision Making Was pt. sent in by a medical professional or institution (, PA, INDUSTRIAL CONTROLS TECHNICIAN, urgent care, hospital, or halfway...) When possible be specific @ -No Did you speak to anyone other than the patient for history (EMS, parent, family, police, friend...)? What history was obtained from this source @ -EMS Did you review nursing and triage notes (agree or disagree)? Why? @ -I reviewed and agree with nursing and triage notes Were old charts reviewed (outside hosp., previous admission, EMS record, old EKG, old radiological studies, urgent care reports/EKG's, halfway records)? Report findings @ -No old charts were reviewed Differential Diagnosis (chest pain, altered mental status, abdominal pain women, abdominal pain men, vaginal bleeding, weakness, fever, dyspnea, syncope, headache, dizziness, GI bleed, back pain, seizure, CVA, palpatations, mental health, musculoskeletal)? @ -Differential Dyspnea: Coronary syndrome, arrhythmia, tamponade, asthma, COPD, pulmonary embolism, pneumonia, pneumothorax, pulmonary effusion, anaphylaxis, diabetic ketoacidosis, flailed chest, pulmonary contusion, diaphragmatic rupture, anemia, neuromuscular, this is not meant to be an all-inclusive list. EKG interpreted by me (3pts min.). @ -Yes and demonstrates sinus rhythm rate 78. ID interval 132. QRS 95. QTC 398. No acute ST segment elevations or depressions X-rays interpreted by me (1pt min.). @ -Yes and demonstrates no acute intracranial process CT interpreted by me (1pt min.). @ -None done U/S interpreted by me (1pt. min.). @ -None done What testing was considered but not performed or refused? (CT, X-rays, U/S, labs)? Why? @ -None What meds were considered but not given or refused? Why? @ -None Did you discuss the management of the patient with other professionals (professionals i.e. , PA, INDUSTRIAL CONTROLS TECHNICIAN, lab, RT, psych nurse, social media strategist, players club representative, teacher, police officer crime prevention, employment case manager)? Give summary @ -No Was smoking cessation discussed for >3mins.? @ -No Was critical care preformed (if so, how long)? @ -No Were there social determinants of health that impacted care today? How? (Homelessness, low income, unemployed, alcoholism, drug addiction, transportation, low edu. Level, literacy, decrease access to med. care, long-term, rehab)? @ -No Was there de-escalation of care discussed even if they declined (Discuss DNR or withdrawal of care, Hospice)? DNR status @ -No What co-morbidities impacted this encounter? (DM, HTN, Smoking, COPD, CAD, Cancer, CVA, ARF, Chemo, Hep., AIDS, mental health diagnosis, sleep apnea, morbid obesity)? @ -Asthma history Was patient admitted / discharged? Hospital course, mention meds given and route, prescriptions, significant lab abnormalities, going to OR and other pertinent info. @ -Discharged. Upon arrival patient was placed in a trauma 3. History and physical exam was performed. Patient continues to have wheezing and therefore is given 2 additional breathing treatments. Chest x-rays performed and demonstrates no acute process. Patient reevaluated and resting comfortably. Patient be discharged home at this time on steroids. He will be additionally given an albuterol inhaler. Instructed to use the inhaler every 4 hours. Take the steroids as directed. Follow up with his doctor and return for any new or worsening symptoms per patient discharged in stable condition Undiagnosed new problem with uncertain prognosis? @ -No Drug Therapy requiring intensive monitoring for toxicity (Heparin, Nitro, Insulin, Cardizem)? @ -No Were any procedures done? @ -No Diagnosis/symptom? @ -Acute asthma exacerbation Acute, or Chronic, or Acute on Chronic? @ -Acute Uncomplicated (without systemic symptoms) or Complicated (systemic symptoms)? @ -uncomplicated Side effects of treatment? @ -No Exacerbation, Progression, or Severe Exacerbation? @ -yes Poses a threat to life or bodily function? How? (Chest pain, [place], [place], pneumonia, PE, COPD, DKA, ARF, appy, cholecystitis, CVA, Diverticulitis, Homicidal, Suicidal, threat to staff... and all critical care pts) @ -No - Lab Data Lab Results 04/09/23 Range/Units 23:03 Influenza Type A (PCR) Not Detected (Not Detectd) Influenza Type B (PCR) Not Detected (Not Detectd) RSV (PCR) Not Detected (Not Detectd) SARS-CoV-2 (PCR) Not Detected (Not Detectd) Disposition Clinical Impression: Asthma exacerbation Disposition: HOME SELF-CARE Condition: Stable Instructions (If sedation given, give patient instructions): Asthma (ED) Additional Instructions: Please take the steroids twice a day for the next 5 days. Use your inhaler every 4 hours. Follow-up with your doctor and return for any new or worsening symptoms Prescriptions: predniSONE [Deltasone] 20 mg PO BID #10 tab Albuterol Inhaler [Ventolin Hfa Inhaler] 1 - 2 puff INHALATION Q4HR PRN #1 each PRN Reason: Shortness Of Breath Is patient prescribed a controlled substance at d/c from ED?: No Referrals: Jamal Humphrey MD [Primary Care Provider] - 1-2 days Time of Disposition: 01:05
[2023-04-10 01:47] VITALS: BP 137/85; PULSE 64
--- NOTE | 2023-04-10 02:55 | XR ---
EXAM: XR Chest, 2 Views CLINICAL HISTORY: ITS.REASON XR Reason: difficulty breathing TECHNIQUE: Frontal and lateral views of the chest. COMPARISON: No relevant prior studies available. FINDINGS: Lungs: No consolidation or mass. Pleural space: No effusion. Heart: No cardiomegaly. Bones/joints: No acute findings. IMPRESSION: No acute cardiopulmonary process.
== END 2023-04-10 01:29 | disposition home or self-care (01) ==
LOC: EC 23:00
DX: J45.901 Unspecified asthma with (acute) exacerbation (principal); Z87.891 Personal history of nicotine dependence; Z91.013 Allergy to seafood; Z20.822 Contact with and (suspected) exposure to COVID-19
CPT/HCPCS: 71046; 87636; 93005; 94640; 99285